=== PATIENT | male | born 1965 | race Caucasian/White ===

== ENCOUNTER 2019-01-10 00:37 | Observation (INO) | payer SELFPAY ==
[2019-01-10] MEDS ORDERED: NICOTINE 21mg 1 EACH PATCH.TD24 TD ONE (01:20)
[2019-01-10] MEDS ORDERED: ENOXAPARIN SODIUM 40 MG/0.4 ML DISP.SYRIN SQ ONE (01:20)
[2019-01-10] MEDS ORDERED: ACETAMINOPHEN 325 MG TABLET ONE (01:20)
[2019-01-10] MEDS ORDERED: SALINE FLUSH 10 ML DISP.SYRIN ONE (01:20)
[2019-01-10] MEDS ORDERED: CLINDAMYCIN HCL 600 MG/50 ML PIGGYBACK IV ONE (01:20)
[2019-01-10] MEDS ORDERED: traMADol HCL 50 MG TABLET ONE ×2 (01:20)
[2019-01-27 13:18] LABS: eGFR (Non-African) > 60
[2019-01-27 13:19] LABS: BASOPHILS % 0.8 % (0.0-1.5); NEUTROPHILS # 5.9 # k/uL (1.4-7.7)
--- NOTE | 2019-01-29 11:29 | Diagnostic Imaging Report ---
RENATA RABAGO ED [facility] [address] [facility].[address] [address] Report Submission Date: Jan 10, 2019 2:32:05 AM CDT Patient Study Name: SUMA GLOVER Date: Jan 10, 2019 12:57:33 AM CDT Modality Type: DX Gender: M Description: CHEST 2VIEW : 61 Institution: [facility] Physician: RENATA RABAGO ED PA and lateral chest Clinical history: Shortness of breath. Findings: Examination of the chest in PA and lateral views with no prior films for comparison demonstrates discoid changes in the lung bases. Cardiac silhouette is within normal limits and the aorta is atherosclerotic. Bony thorax is intact. Impression: 1. 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 2. Aortic atherosclerosis. Electronically signed on Jan 10, 2019 2:32:05 AM CDT by: Ray VEGA
== END 2019-01-10 09:05 | disposition home or self-care (01) ==
LOC: ED 00:37 → UNDOADMOB 00:38 → SOUTH 00:38 → UNDOADMOB 01:40 → SOUTH 01:40
PROVIDERS: ADMIT Family Medicine; ATTEND Family Medicine
DX: R07.9 Chest pain, unspecified (principal); K04.7 Periapical abscess without sinus
CPT/HCPCS: 36415; 71020; 80053; 82550; 82553; 84484; 85025; 99234; G0378; J1650